=== PATIENT | female | born 1940 | race Caucasian/White ===

== ENCOUNTER 2016-11-27 11:28 | Day surgery (SDC) | payer MEDICARE ==
[~2016-11-27] VITALS: Ht 162.6 cm; Wt 62.1 kg
[~2016-11-27 11:28] MED LIST: AMLO5TAB2 PO; ASPI-101 PO; ATEN50TA2 PO; CITA20TA4 PO; HYDRPOW28 OR; MULTCAP PO; PERC5TAB12 PO; PRAV40TA2 PO; PROBCAP4 PO; VITA100072 PO; VITA200016 PO; VITATAB11 PO; iron OR
[2016-11-27] MEDS ORDERED: NS 500 ML IV ONE (11:45)
[2016-11-27] MEDS ORDERED: LIDOCAINE 2% INJ 100 MG/5 ML SDV (FOR ANES.) As Ordered ONE (13:08)
[2016-11-27] MEDS ORDERED: PROPOFOL 200 MG/20 ML VIAL As Ordered ONE (13:08)
--- NOTE | 2016-11-27 13:16 | ROOR ---
Patient Name: Heather Sibley Procedure Date: 11/27/2016 12:34 PM Date of : 1940 Age: 76 Room: [facility] Gender: Female Note Status: Finalized Procedure: Total Colonoscopy to Cecum + Cold Snare Polypectomy + Hemoclip Indications: Colon polyps of uncertain behavior, Follow-up for history of colon polyps of uncertain behavior Providers: Wang Olivia MD Referring MD: Lashanda Christina DO Requesting Provider: Medicines: Monitored Anesthesia Care Complications: No immediate complications. Procedure: Pre-Anesthesia Assessment: - The heart rate, respiratory rate, oxygen saturations, blood pressure, adequacy of pulmonary ventilation, and response to care were monitored throughout the procedure. The Colonoscope was introduced through the anus and advanced to the cecum, identified by appendiceal orifice and ileocecal valve. The colonoscopy was performed without difficulty. The patient tolerated the procedure well. The quality of the bowel preparation was good. Findings: The perianal and digital rectal examinations were normal. Non-bleeding internal hemorrhoids were found during retroflexion. The hemorrhoids were small and Grade I (internal hemorrhoids that do not prolapse). Multiple small and large-mouthed diverticula were found in the recto-sigmoid colon, sigmoid colon and descending colon. Multiple sessile polyps were found in the ascending colon and cecum. The polyps were medium in size. These polyps were removed with a cold snare. Resection and retrieval were complete. To prevent bleeding after the polypectomy, one hemostatic clip was successfully placed (MR conditional). There was no bleeding at the end of the procedure. A medium polyp was found in the hepatic flexure. The polyp was carpet-like. The polyp was removed with a jumbo cold forceps. Resection and retrieval were complete. The exam was otherwise without abnormality on direct and retroflexion views. Impression: - Non-bleeding internal hemorrhoids. - Diverticulosis in the recto-sigmoid colon, in the sigmoid colon and in the descending colon. - Multiple medium polyps in the ascending colon and in the cecum, removed with a cold snare. Resected and retrieved. Clip (MR conditional) was placed. - One medium polyp at the hepatic flexure, removed with a jumbo cold forceps. Resected and retrieved. - The examination was otherwise normal on direct and retroflexion views. - The exam was otherwise normal to the cecum. Recommendation: - Patient has a contact number available for emergencies. The signs and symptoms of potential delayed complications were discussed with the patient. Return to normal activities tomorrow. Written discharge instructions were provided to the patient. - High fiber diet. - Discharge patient to home. - Continue present medications. - Await pathology results. - Telephone GI clinic for pathology results in 1 week. - Repeat colonoscopy for surveillance based on pathology results. - Return to referring physician. - The findings and recommendations were discussed with the patient's family. Wang Olivia MD Wang Olivia MD 11/27/2016 1:16:13 PM This report has been signed electronically. Number of Addenda: 0 Note Initiated On: 11/27/2016 12:34 PM Estimated Blood Loss: Estimated blood loss: none.
[2016-11-27 13:35] VITALS: BP 202/93
== END 2016-11-27 13:48 | disposition home or self-care (01) ==
LOC: M OPP 11:28 → EDSTATUS 13:00 → M OPP 13:48
PROVIDERS: ATTEND Internal Medicine Gastroenterology
DX: Z09 Encounter for follow-up examination after completed treatment for conditions other than malignant neoplasm (principal); D37.4 Neoplasm of uncertain behavior of colon; Z86.010 Personal history of colon polyps; Z80.0 Family history of malignant neoplasm of digestive organs; K63.5 Polyp of colon; K64.0 First degree hemorrhoids; K57.30 Diverticulosis of large intestine without perforation or abscess without bleeding; I10 Essential (primary) hypertension; E78.5 Hyperlipidemia, unspecified; M19.90 Unspecified osteoarthritis, unspecified site; G25.81 Restless legs syndrome; Z87.440 Personal history of urinary (tract) infections; F41.9 Anxiety disorder, unspecified; Z98.84 Bariatric surgery status; Z88.0 Allergy status to penicillin; Z79.82 Long term (current) use of aspirin; Z79.899 Other long term (current) drug therapy; Z80.42 Family history of malignant neoplasm of prostate; Z87.891 Personal history of nicotine dependence

== ENCOUNTER → 2017-08-11 | Outpatient (REF) | payer OTHER | LOC: M SMT 13:02 | DX: N39.0 Urinary tract infection, site not specified (principal) | CPT/HCPCS: 87086 ==

== ENCOUNTER 2017-08-19 09:13 | Inpatient (IN) | payer OTHER ==
[2017-08-19] MEDS ORDERED: fentaNYL 100 MCG/2 ML INJECTION (J3010) As Ordered ×3 (09:26→16:05)
[2017-08-19] MEDS ORDERED: MIDAZOLAM INJ 2 MG/2 ML VIAL (J2250) As Ordered (09:26)
[2017-08-19] MEDS ORDERED: PROPOFOL 200 MG/20 ML VIAL As Ordered (09:29)
[2017-08-19] MEDS ORDERED: ROCURONIUM BROMIDE 50 MG/5 ML VIAL As Ordered ×3 (09:29→15:43)
[2017-08-19] MEDS ORDERED: LIDOCAINE 2% INJ 100 MG/5 ML SDV (FOR ANES.) As Ordered (09:29)
[2017-08-19] MEDS ORDERED: LIDOCAINE 1% MDV 20ML VIAL SQ (09:30)
[2017-08-19 10:12] LABS: POTASSIUM SERUM 4.5 MEQ/L (3.5-5.1)
[2017-08-19] MEDS: LR 1,000 ML IV ×2 (10:12→17:00)
[2017-08-19] MEDS ORDERED: MANNITOL 25% 12.5 GM/50 ML VIAL (J2150) As Ordered (13:12)
[2017-08-19] MEDS ORDERED: SUGAMMADEX SODIUM 500 MG/5 ML VIAL (BRIDION) As Ordered (16:00)
[2017-08-19] MEDS ORDERED: MORPHINE 10 MG/ML 1ML VIAL (J2270) As Ordered (16:46)
[2017-08-19] MEDS: MORPHINE 10 MG/ML 1ML VIAL (J2270) IV ×2 (16:47→17:05)
[2017-08-19] MEDS ORDERED: KCL 20MEQ IN D5/.45NACL 1000ML As Ordered ×2 (16:50→17:53)
[2017-08-19] MEDS ORDERED: KCL 10MEQ IN D5/0.45NS 1000ML 1,000 ML IV (17:00)
[2017-08-19] MEDS ORDERED: ONDANSETRON 4MG/2ML VIAL (J2405) IV ×2 (17:00→17:15)
[2017-08-19] MEDS ORDERED: fentaNYL 100 MCG/2 ML INJECTION (J3010) IV (17:00)
[2017-08-19] MEDS ORDERED: MORPHINE 4 MG/ML 1ML VIAL/SYRINGE (J2270) IV (17:15)
[2017-08-19] MEDS: oxyCODONE 5MG TAB PO ×2 (17:25→21:44)
[2017-08-19 17:31] LABS: HEMATOCRIT 38.8 % (36.0-47.0); HEMOGLOBIN 12.7 g/dl (12.0-15.5); MEAN CORPUSCULAR HEMOGLOBIN 31.8 pg (27.0-33.0); MEAN CORPUSCULAR HGB CONC 32.7 g/dl (32.0-36.5); PLATELET COUNT, AUTOMATED 158 10^3/uL (150-450); RED CELL DISTRIBUTION WIDTH 13.2 % (11.5-14.5); WHITE BLOOD COUNT 14.1 10^3/uL (4.0-10.0)
[2017-08-19 17:59] LABS: ANION GAP 8 MEQ/L (8-16); BLOOD UREA NITROGEN 34 MG/DL (7-18); CALCIUM LEVEL 8.4 MG/DL (8.8-10.2); CARBON DIOXIDE LEVEL 25 MEQ/L (21-32); CHLORIDE LEVEL 107 MEQ/L (98-107); CREATININE FOR GFR 1.14 MG/DL (0.55-1.30); GLOMERULAR FILTRATION RATE 49.1 (>39); GLUCOSE, FASTING 163 MG/DL (70-100); POTASSIUM SERUM 4.6 MEQ/L (3.5-5.1); SODIUM LEVEL 140 MEQ/L (136-145)
[2017-08-19] MEDS: KCL 20MEQ IN D5/0.45NS 1000ML 1,000 ML IV (18:37)
[2017-08-19] MEDS: LevoFLOXacin 500 MG TABLET PO (18:37)
[2017-08-19] MEDS: ACETAMINOPHEN 650MG ER TAB (TYLENOL ARTHRITIS) PO (21:41)
[2017-08-19] MEDS: amLODIPine 5 MG TAB PO (21:42)
[2017-08-19] MEDS: PANTOPRAZOLE 40MG INJ (PROTONIX) (C9113) IV (21:42)
[2017-08-20] MEDS: KCL 20MEQ IN D5/0.45NS 1000ML 1,000 ML IV ×2 (03:39→13:36)
[2017-08-20] MEDS: ACETAMINOPHEN 650MG ER TAB (TYLENOL ARTHRITIS) PO ×2 (05:58→14:36)
[2017-08-20] MEDS: LevoFLOXacin 250 MG TABLET PO (05:58)
[2017-08-20 06:18] LABS: HEMATOCRIT 37.1 % (36.0-47.0); MEAN CORPUSCULAR HEMOGLOBIN 31.2 pg (27.0-33.0); MEAN CORPUSCULAR HGB CONC 32.3 g/dl (32.0-36.5); MEAN CORPUSCULAR VOLUME 96.4 fl (80.0-96.0); PLATELET COUNT, AUTOMATED 207 10^3/uL (150-450); RED BLOOD COUNT 3.85 10^6/uL (4.00-5.40); RED CELL DISTRIBUTION WIDTH 13.2 % (11.5-14.5); WHITE BLOOD COUNT 12.4 10^3/uL (4.0-10.0)
[2017-08-20 06:37] LABS: ANION GAP 3 MEQ/L (8-16); BLOOD UREA NITROGEN 26 MG/DL (7-18); CALCIUM LEVEL 8.2 MG/DL (8.8-10.2); CARBON DIOXIDE LEVEL 29 MEQ/L (21-32); CHLORIDE LEVEL 106 MEQ/L (98-107); CREATININE FOR GFR 1.06 MG/DL (0.55-1.30); GLOMERULAR FILTRATION RATE 53.4 (>39); GLUCOSE, FASTING 150 MG/DL (70-100); POTASSIUM SERUM 4.8 MEQ/L (3.5-5.1); SODIUM LEVEL 138 MEQ/L (136-145)
[2017-08-20] MEDS: PRAVASTATIN 20 MG TAB PO (08:09)
[2017-08-20] MEDS: amLODIPine 5 MG TAB PO (08:12)
[2017-08-20] MEDS: ATENOLOL 25 MG TAB PO (08:12)
[2017-08-20] MEDS: oxyCODONE 5MG TAB PO ×2 (12:23→17:18)
== END 2017-08-20 18:19 | disposition home or self-care (01) | DRG 661 ==
LOC: M OR 09:13 → M MSPAV 18:09
PROVIDERS: Urology
PROC: 0TB04ZZ Excision of Right Kidney, Percutaneous Endoscopic Approach (ICD-10-PCS; principal; 2017-08-19 11:30)
PROC: 8E0W4CZ Robotic Assisted Procedure of Trunk Region, Percutaneous Endoscopic Approach (ICD-10-PCS; 2017-08-19 11:30)
DX: N28.1 Cyst of kidney, acquired (principal); Z79.899 Other long term (current) drug therapy; Z79.82 Long term (current) use of aspirin

== ENCOUNTER → 2017-12-01 | Outpatient (CLI) | payer OTHER ==
[2017-12-01 13:53] LABS: APPEARANCE, URINE CLOUDY (CLEAR); BACTERIA, URINE AUTO 1+ (NEGATIVE); BILIRUBIN, URINE AUTO NEGATIVE (NEGATIVE); BLOOD, URINE BLOOD NEGATIVE (NEGATIVE); CALCIUM OXALATE CRYSTALS LARGE; COLOR, URINE AMBER (YELLOW); GLUCOSE, URINE (UA) AUTO 2+ mg/dL (NEGATIVE); HEMATOCRIT 44.7 % (36.0-47.0); KETONE, URINE AUTO TRACE mg/dL (NEGATIVE); LEUKOCYTE ESTERASE, URINE AUTO 3+ (NEGATIVE); MEAN CORPUSCULAR HEMOGLOBIN 31.5 pg (27.0-33.0); MEAN CORPUSCULAR HGB CONC 31.3 g/dl (32.0-36.5); MEAN CORPUSCULAR VOLUME 100.7 fl (80.0-96.0); MUCUS, URINE SMALL (NEGATIVE); NITRITE, URINE AUTO NEGATIVE (NEGATIVE); PLATELET COUNT, AUTOMATED 290 10^3/uL (150-450); PROTEIN, URINE AUTO 1+ mg/dL (NEGATIVE); RBC, URINE AUTO 0 /HPF (0-3); RED BLOOD COUNT 4.44 10^6/uL (4.00-5.40); RED CELL DISTRIBUTION WIDTH 13.6 % (11.5-14.5); SPECIFIC GRAVITY URINE AUTO 1.019 (1.002-1.035); SQUAMOUS EPITHELIAL CELL UR AU 15 /HPF (0-6); WBC, URINE AUTO 32 /HPF (0-3)
[2017-12-01 14:00] LABS: ANION GAP 10 MEQ/L (8-16); BLOOD UREA NITROGEN 39 MG/DL (7-18); CALCIUM LEVEL 9.4 MG/DL (8.8-10.2); CARBON DIOXIDE LEVEL 25 MEQ/L (21-32); CHLORIDE LEVEL 106 MEQ/L (98-107); GLOMERULAR FILTRATION RATE 35.8 (>39); GLUCOSE, FASTING 72 MG/DL (70-100); POTASSIUM SERUM 4.7 MEQ/L (3.5-5.1); SODIUM LEVEL 141 MEQ/L (136-145)
== END ==
LOC: M SMT 10:58
DX: N28.1 Cyst of kidney, acquired (principal)
CPT/HCPCS: 80048

== ENCOUNTER → 2017-12-19 | Outpatient (REF) | payer OTHER ==
[2017-12-19 17:47] LABS: APPEARANCE, URINE CLEAR (CLEAR); BACTERIA, URINE AUTO NEGATIVE (NEGATIVE); BILIRUBIN, URINE AUTO NEGATIVE (NEGATIVE); BLOOD, URINE BLOOD NEGATIVE (NEGATIVE); COLOR, URINE YELLOW (YELLOW); GLUCOSE, URINE (UA) AUTO NEGATIVE (NEGATIVE); KETONE, URINE AUTO NEGATIVE (NEGATIVE); LEUKOCYTE ESTERASE, URINE AUTO NEGATIVE (NEGATIVE); MUCUS, URINE SMALL (NEGATIVE); NITRITE, URINE AUTO NEGATIVE (NEGATIVE); PROTEIN, URINE AUTO NEGATIVE (NEGATIVE); RBC, URINE AUTO 0 /HPF (0-3); SPECIFIC GRAVITY URINE AUTO 1.013 (1.002-1.035); SQUAMOUS EPITHELIAL CELL UR AU 0 /HPF (0-6); UROBILINOGEN, URINE AUTO 0.2 mg/dL (0.0-2.0); WBC, URINE AUTO 1 /HPF (0-3)
== END ==
LOC: M SMT 16:56
DX: N39.0 Urinary tract infection, site not specified (principal)
CPT/HCPCS: 81001

== ENCOUNTER → 2018-06-10 | Outpatient (CLI) | payer OTHER ==
[~2018-06-10] MED LIST changes: -AMLO5TAB2 PO; +AMLO5TAB6 PO; -ASPI-101 PO; +ASPI-225 PO; +CHEW500C2 PO; -CITA20TA4 PO; +CITA20TA6 PO; +COLA100C5 PO; +HYDR-3715 PO; +LEVA250T13 PO; +MACR100C43 PO; +OXYC-517 PO; +TYLE650T35 PO; +VITA100018 PO; -VITA100072 PO; +VITA50005 PO; -iron OR; +iron PO
[2018-06-10 14:01] LABS: HEMATOCRIT 41.2 % (36.0-47.0); HEMOGLOBIN 13.2 g/dl (12.0-15.5); MEAN CORPUSCULAR HEMOGLOBIN 32.2 pg (27.0-33.0); MEAN CORPUSCULAR VOLUME 100.5 fl (80.0-96.0); PLATELET COUNT, AUTOMATED 242 10^3/uL (150-450); WHITE BLOOD COUNT 9.1 10^3/uL (4.0-10.0)
[2018-06-10 14:04] LABS: CALCIUM LEVEL 8.9 MG/DL (8.8-10.2); CREATININE FOR GFR 1.24 MG/DL (0.55-1.30); GLOMERULAR FILTRATION RATE 44.5 (>39); POTASSIUM SERUM 4.6 MEQ/L (3.5-5.1)
== END ==
LOC: M SMT 10:30
PROVIDERS: ATTEND Nurse Practitioner Women's Health
DX: N28.1 Cyst of kidney, acquired (principal)

== ENCOUNTER → 2018-06-22 | Outpatient (REF) | payer MEDICARE, OTHER ==
[2018-06-22 14:13] LABS: APPEARANCE, URINE CLOUDY (CLEAR); BACTERIA, URINE AUTO 1+ (NEGATIVE); BILIRUBIN, URINE AUTO NEGATIVE (NEGATIVE); BLOOD, URINE BLOOD NEGATIVE (NEGATIVE); CALCIUM OXALATE CRYSTALS MODERATE; COLOR, URINE AMBER (YELLOW); GLUCOSE, URINE (UA) AUTO NEGATIVE (NEGATIVE); KETONE, URINE AUTO TRACE mg/dL (NEGATIVE); LEUKOCYTE ESTERASE, URINE AUTO 3+ (NEGATIVE); MUCUS, URINE SMALL (NEGATIVE); NITRITE, URINE AUTO NEGATIVE (NEGATIVE); PROTEIN, URINE AUTO 1+ mg/dL (NEGATIVE); RBC, URINE AUTO 1 /HPF (0-3); SPECIFIC GRAVITY URINE AUTO 1.025 (1.002-1.035); SQUAMOUS EPITHELIAL CELL UR AU 12 /HPF (0-6); WBC, URINE AUTO 5 /HPF (0-3)
== END ==
LOC: M SMT 13:28
PROVIDERS: ATTEND Nurse Practitioner Women's Health
DX: Z87.440 Personal history of urinary (tract) infections (principal); N28.1 Cyst of kidney, acquired
CPT/HCPCS: 81001; 87086; G0463

== ENCOUNTER 2022-10-01 12:10 | Emergency (ER) | payer MEDICARE ==
[~2022-10-01] VITALS: Ht 162.6 cm; Wt 51.4 kg
[~2022-10-01 12:10] MED LIST changes: +ACET650T61 PO; +AMLO1TAB24 PO; -AMLO5TAB6 PO; -ASPI-225 PO; +ASPI81TA78 PO; +CALC-362 PO; -CHEW500C2 PO; -TYLE650T35 PO
[2022-10-01] MEDS ORDERED: NEOSPORIN OINT 0.9 GM PKT TOP ONE (15:05)
[2022-10-01 15:38] LABS: BASO % 0.3 % (0.0-1.0); HEMOGLOBIN 12.7 g/dl (12.0-15.5); LYMPH # 0.7 10^3/uL (1.5-5.0); LYMPH % 4.5 % (24.0-44.0); MEAN CORPUSCULAR HGB CONC 32.6 g/dl (32.0-36.5); MEAN CORPUSCULAR VOLUME 101.3 fl (80.0-96.0); MONO # 1.2 10^3/uL (0.0-0.8); MONO % 8.5 % (2.0-8.0); NEUTROPHILS # 12.4 10^3/uL (1.5-8.5); NEUTROPHILS % 85.7 % (36.0-66.0); PLATELET COUNT, AUTOMATED 242 10^3/uL (150-450); RED BLOOD COUNT 3.85 10^6/uL (4.00-5.40); WHITE BLOOD COUNT 14.4 10^3/uL (4.0-10.0)
[2022-10-01] MEDS ORDERED: NORCO 5/325MG TABLET (HOME DOSE PACK) PO ONE (16:05)
[2022-10-01 16:07] LABS: RSV AMPLIFICATION NEGATIVE (NEGATIVE)
[2022-10-01] MEDS ORDERED: HYDR-3713 PO (16:21)
[2022-10-01 16:29] VITALS: BP 142/74; TEMP 97.5; O2SAT 96
[2022-10-01 16:50] LABS: CALCIUM LEVEL 9.2 MG/DL (8.3-10.6); CREATININE FOR GFR 2.42 MG/DL (0.55-1.30); GLOMERULAR FILTRATION RATE 20.3 (>32); POTASSIUM SERUM 4.7 MMOL/L (3.5-5.1)
== END 2022-10-01 17:30 | disposition home or self-care (01) ==
LOC: M ED 12:10
DX: S42.292A Other displaced fracture of upper end of left humerus, initial encounter for closed fracture (principal); M85.832 Other specified disorders of bone density and structure, left forearm; M19.032 Primary osteoarthritis, left wrist; I77.810 Thoracic aortic ectasia; W01.0XXA Fall on same level from slipping, tripping and stumbling without subsequent striking against object, initial encounter; Y92.009 Unspecified place in unspecified non-institutional (private) residence as the place of occurrence of the external cause; I10 Essential (primary) hypertension; E78.5 Hyperlipidemia, unspecified; Z98.84 Bariatric surgery status; Z79.899 Other long term (current) drug therapy; Z88.0 Allergy status to penicillin

== ENCOUNTER 2022-12-04 22:59 | Inpatient (IN) | payer MEDICARE ==
[~2022-12-04] VITALS: Ht 162.6 cm; Wt 53.6 kg
[~2022-12-04 22:59] MED LIST changes: +HYDR-3713 PO
[2022-12-05] VITALS (80 sets, daily range): BP systolic 74–186; BP diastolic 39–109; TEMP 97.6–98.3; O2SAT 54–100
[2022-12-05] MEDS: NOREPINEPHRINE 4MG IN D5 250ML 4 MG in IV 1 EA IV SCH ×12 (00:40→16:43)
[2022-12-05] MEDS ORDERED: HYDROMORPHONE HCL 0.5 MG/ 0.5 ML SYRINGE IV PRN (01:35)
[2022-12-05] MEDS ORDERED: NS 1,000 ML IV SCH (01:35)
[2022-12-05] MEDS ORDERED: NS 500 ML IV ONE (02:25)
[2022-12-05] MEDS ORDERED: OYST500T91 PO (02:34)
[2022-12-05] MEDS ORDERED: HYDR-4571 PO (02:34)
[2022-12-05] MEDS ORDERED: FERR1TAB8 PO (02:34)
[2022-12-05] MEDS ORDERED: ATEN25TA PO (02:34)
[2022-12-05] MEDS ORDERED: VITATAB73 PO (02:34)
[2022-12-05] MEDS ORDERED: VITMTA PO (02:34)
[2022-12-05] MEDS ORDERED: HOME MED LIST COMPLETE! XX SCH (02:35)
[2022-12-05] MEDS ORDERED: LIDOCAINE 1% MDV 20ML VIAL SC ONE (02:55)
[2022-12-05] MEDS: metroNIDAZOLE 500 MG in IV 1 EA IV SCH ×2 (04:58→14:30)
[2022-12-05] MEDS ORDERED: CIPROFLOXACIN 200 MG in IV 1 EA IV SCH (05:00)
[2022-12-05 05:02] LABS: HEMATOCRIT 41.8 % (36.0-47.0); HEMOGLOBIN 12.9 g/dl (12.0-15.5); MEAN CORPUSCULAR HEMOGLOBIN 30.8 pg (27.0-33.0); MEAN CORPUSCULAR HGB CONC 30.9 g/dl (32.0-36.5); MEAN CORPUSCULAR VOLUME 99.8 fl (80.0-96.0); PLATELET COUNT, AUTOMATED 341 10^3/uL (150-450); RED BLOOD COUNT 4.19 10^6/uL (4.00-5.40); WHITE BLOOD COUNT 21.6 10^3/uL (4.0-10.0)
[2022-12-05 05:18] LABS: INR 1.91; PROTHROMBIN TIME 21.4 SECONDS (12.5-14.5)
[2022-12-05 05:46] LABS: ATYPICAL LYMPH 3 % (0-5); LYMPHOCYTES 9 % (16-44); METAMYELOCYTES 2 % (0-0); MONOCYTES 8 % (0-5); NEUTROPHILS 52 % (28-66); NUCLEATED RED BLOOD CELL 6 % (0-0)
[2022-12-05 05:47] LABS: PLATELET ESTIMATE NORMAL (NORMAL)
[2022-12-05 05:48] LABS: ANISOCYTOSIS 1+; BURR CELLS 1+; MICROCYTOSIS 1+; OVALOCYTES 1+; POLYCHROMASIA 1+
[2022-12-05] MEDS: NS 500 ML IV ONE ×2 (05:59→06:03)
[2022-12-05 06:09] LABS: ALKALINE PHOSPHATASE 230 U/L (46-116); ALT/SGPT 3352 U/L (7.0-40); AST/SGOT > 6000 U/L (<34); BILIRUBIN,TOTAL 0.4 MG/DL (0.3-1.2); BLOOD UREA NITROGEN 92 MG/DL (9-23); CALCIUM LEVEL 9.1 MG/DL (8.3-10.6); CARBON DIOXIDE LEVEL 14 MMOL/L (20-31); CHLORIDE LEVEL 101 MMOL/L (98-107); CREATININE FOR GFR 2.72 MG/DL (0.55-1.30); GLOMERULAR FILTRATION RATE 17.8 (>32); GLUCOSE, FASTING 216 MG/DL (74-106); MAGNESIUM LEVEL 2.8 MG/DL (1.8-2.4); PHOSPHORUS LEVEL 6.2 MG/DL (2.4-5.1); POTASSIUM SERUM 5.9 MMOL/L (3.5-5.1); SODIUM LEVEL 133 MMOL/L (136-145); TOTAL PROTEIN 4.9 G/DL (5.7-8.2)
[2022-12-05] MEDS ORDERED: HumuLIN R (REGULAR) INSULIN (NovoLIN R) **100U/ML** PER UNIT IV STA (06:14)
[2022-12-05] MEDS ORDERED: CALCIUM GLUCONATE 1,000 MG in D5W MINI-BAG PLUS 100 ML IV ONE (06:15)
[2022-12-05] MEDS ORDERED: SODIUM BICARBONATE 75 MEQ in NS 0.45% 1,000 ML IV SCH (06:15)
[2022-12-05] MEDS ORDERED: SOD POLYSTYRENE SULFONATE SUSP 15GM 60ML UD PO ONE (06:15)
[2022-12-05] MEDS ORDERED: VASOPRESSIN INJ 20 UNITS in NS 499 ML IV SCH (06:25)
[2022-12-05] MEDS ORDERED: DEXTROSE 50% 50ML SYRINGE IV STA (06:44)
[2022-12-05 06:59] LABS: SOURCE, BODY FLUID ALBUMIN PLEURAL
[2022-12-05 07:04] LABS: SOURCE, BODY FLUID GLUCOSE PLEURAL; SOURCE, BODY FLUID TRIG PLEURAL; TRIGLYCERIDE, BODY FLUID 57 MG/DL (NOT ESTABLISHED)
[2022-12-05 07:06] LABS: AMYLASE, BODY FLUID 26 U/L (NOT ESTABLISHED); CHOLESTEROL, BODY FLUID 63 MG/DL (NOT ESTABLISHED); SOURCE, BODY FLUID AMYLASE PLEURAL; SOURCE, BODY FLUID CHOL PLEURAL; SOURCE, BODY FLUID TOT PROTEIN PLEURAL; TOTAL PROTEIN, BODY FLUID 3.7 G/DL (NOT ESTABLISHED)
[2022-12-05 07:06] LABS: SALICYLATE LEVEL 3.1 MG/DL (<30)
[2022-12-05 07:09] LABS: FREE T4 0.77 NG/DL (0.89-1.76)
[2022-12-05 07:15] LABS: LDH, BODY FLUID > 750 U/L (NOT ESTABLISHED); SOURCE, BODY FLUID LDH PLEURAL
[2022-12-05] MEDS: VASOPRESSIN INJ 20 UNITS in NS 499 ML IV SCH ×2 (07:16→14:34)
[2022-12-05 07:29] LABS: APPEARANCE, BODY FLUID CLOUDY (CLEAR); PLEURAL FL COLOR YELLOW (COLORLESS); SOURCE, BODY FLUID PLEURAL
[2022-12-05 08:20] LABS: ABG BASE EXCESS -14.6 (-2.0-2.0); ABG HCO3 10.7 MMOL/L (22.0-26.0); ABG PARTIAL PRESSURE CO2 24.5 mmHg (35.0-45.0); ABG STANDARD HCO3 13.3 MMOL/L. (22.0-26.0); ABG TOTAL CO2 11.5 MMOL/L (23.0-31.0); ABG pH (ARTERIAL) 7.259 UNITS (7.350-7.450)
[2022-12-05] MEDS ORDERED: PANTOPRAZOLE 40MG VIAL IV SCH (09:00)
[2022-12-05] MEDS ORDERED: cefTRIAXone SOD 2 GM in D5W MINI-BAG PLUS 50 ML IV SCH (09:00)
[2022-12-05] MEDS ORDERED: GLUCAGON INJ 1MG VIAL SC PRN (09:10)
[2022-12-05] MEDS ORDERED: GLUCOSE 4GM CHEW TABLET PO PRN (09:10)
[2022-12-05] MEDS ORDERED: DEXTROSE 50% 50ML SYRINGE IV PRN (09:10)
[2022-12-05] MEDS ORDERED: NS 1,000 ML IV ONE ×2 (09:10→12:10)
[2022-12-05 09:57] LABS: ALBUMIN 1.6 G/DL (3.2-5.2); CALCIUM LEVEL 8.7 MG/DL (8.3-10.6); CREATININE FOR GFR 2.72 MG/DL (0.55-1.30); GLOMERULAR FILTRATION RATE 17.8 (>32); PHOSPHORUS LEVEL 5.8 MG/DL (2.4-5.1); POTASSIUM SERUM 5.9 MMOL/L (3.5-5.1)
[2022-12-05] MEDS ORDERED: BISACODYL 10MG SUPP PR ONE (10:15)
[2022-12-05] MEDS ORDERED: HEPARIN 1,000UNITS/ML 10ML VIAL (FOR RADIOLOGY & DIALYSIS ONLY) IV PRN (10:55)
[2022-12-05] MEDS ORDERED: SODIUM CHLORIDE 0.9% INJ 10 ML SYR IV PRN (10:55)
[2022-12-05] MEDS ORDERED: INSULIN LISPRO (NovoLOG) PER UNIT SC SCH (12:00)
[2022-12-05] MEDS ORDERED: DOPamine HCL 400 MG in IV 1 EA IV SCH (13:55)
[2022-12-05] MEDS ORDERED: DOPamine 400 MG/500 ML BAG IN D5W (800MCG/ML) As Ordered ONE (13:59)
[2022-12-05] MEDS ORDERED: HEPARIN SOD (PORCINE) 5000UNITS/ML 1ML VIAL/SYRINGE SQ SCH (14:00)
[2022-12-05] MEDS ORDERED: MORPHINE 10MG/0.5ML ORAL CONCENTRATE SOLUTION U/D SL PRN (18:25)
[2022-12-05] MEDS ORDERED: LORazepam 2 MG/ML 1ML VIAL IV PRN (18:25)
[2022-12-05] MEDS ORDERED: SCOPOLAMINE 1MG TRANSDERMAL PATCH TOP PRN (18:25)
[2022-12-05] MEDS ORDERED: MORPHINE 2 MG/ML 1ML VIAL IV PRN (18:25)
== END 2022-12-05 18:53 | disposition expired | DRG 871 ==
LOC: M ICU 12-05 01:34
PROVIDERS: ADMIT Internal Medicine; ATTEND Internal Medicine
PROC: 0W9B30Z Drainage of Left Pleural Cavity with Drainage Device, Percutaneous Approach (ICD-10-PCS; principal; 2022-12-05)
PROC: 02HV33Z Insertion of Infusion Device into Superior Vena Cava, Percutaneous Approach (ICD-10-PCS; 2022-12-05)
DX: A41.9 Sepsis, unspecified organism (principal); R65.21 Severe sepsis with septic shock; G93.41 Metabolic encephalopathy; J18.9 Pneumonia, unspecified organism; J86.9 Pyothorax without fistula; J90 Pleural effusion, not elsewhere classified; E87.20 Acidosis, unspecified; R64 Cachexia; N17.9 Acute kidney failure, unspecified; E46 Unspecified protein-calorie malnutrition; E87.1 Hypo-osmolality and hyponatremia; K56.7 Ileus, unspecified; K72.90 Hepatic failure, unspecified without coma; E78.5 Hyperlipidemia, unspecified; E87.5 Hyperkalemia; I12.9 Hypertensive chronic kidney disease with stage 1 through stage 4 chronic kidney disease, or unspecified chronic kidney disease; E78.00 Pure hypercholesterolemia, unspecified; K44.9 Diaphragmatic hernia without obstruction or gangrene; Z98.84 Bariatric surgery status; R74.01 Elevation of levels of liver transaminase levels; E87.6 Hypokalemia; N18.9 Chronic kidney disease, unspecified; Z79.899 Other long term (current) drug therapy; Z88.0 Allergy status to penicillin; Z87.891 Personal history of nicotine dependence; Z66 Do not resuscitate; Z96.612 Presence of left artificial shoulder joint